=== PATIENT | female | born 1955 | race Asian ===

== ENCOUNTER 2017-11-14 16:46 | Emergency (ER) | payer BC, MEDICAID ==
[~2017-11-14] VITALS: Ht 160 cm; Wt 49.9 kg
[2017-11-14] MEDS ORDERED: ESTR0.5T PO (16:59)
[2017-11-14] MEDS ORDERED: IBUP-1957 PO (16:59)
--- NOTE | 2017-11-14 17:34 | NUR ---
Patient discharged to home in stable conditon. Written and verbal after care instructions given to patient and patient's spouse. Patient and family verbalized understanding of instructions.
--- NOTE | 2017-11-14 17:44 | NUR ---
Great emphasis was given by our ER doctor to the patient and her spouse to follow up with an motor tune up specialist as soonest as possible.
== END 2017-11-14 17:45 | disposition home or self-care (01) ==
LOC: ER 16:50
DX: H33.21 Serous retinal detachment, right eye (principal); Z88.5 Allergy status to narcotic agent; Z79.1 Long term (current) use of non-steroidal anti-inflammatories (NSAID); Z79.899 Other long term (current) drug therapy
CPT/HCPCS: A4663